=== PATIENT | female | born 1980 | race Caucasian/White ===

== ENCOUNTER 2019-07-22 14:33 | Outpatient (CLI) | payer MEDICAID, SELFPAY ==
--- NOTE | 2019-07-22 14:52 | CT_ITS ---
WS: [id number] CT scan of the neck. Additional two-dimensional coronal and sagittal reconstruction was performed. Clinical Data: ABNORMAL US RESULTS FOR MASS OF STN Comparison: None. DLP: 1446.[address] scans at [facility] use at least one of these dose optimization techniques: automat ed exposure control; mA and/or kV adjustment per patient size (includes targeted exams where dose is matched to clinical indication); or iterative reconstruction. Findings: There is a small lymph node noted on the coronal view, #22 of 90 which measures 0.815 cm. This is on the right side of the posterior neck and may correspond to the palpable abnormality. No lymphadenopathy is noted. The salivary glands are unremarkable. There is no prevertebral soft tiss ue swelling. The larynx is symmetric. The thyroid gland shows normal enhancement. The floor of the mo uth and parapharyngeal spaces are normal. The oral cavity is unremarkable. The carotid arteries bifurcate normally. The cervical spine is unremarkable. The lung apices show no abnormalities. The portions of the intracranial circulation which are seen demonstrate no abnormaliti es. No erosion of the skull or skull base is seen. CT/CT neck w con* [id number] Impression: 1. Probable small lymph node in the posterior lateral aspect of the neck which may correspond to a palpable nodule. 2. Otherwise, negative CT scan of the neck.
[2019-07-22] MEDS: iohexol 300 mg/mL 100 mL Btl IV (15:16)
== END 2019-07-22 14:34 | disposition home or self-care (01) ==
PROVIDERS: Family Provider Family Medicine; PCP Family Medicine; Visit Provider Internal Medicine
DX: R93.0 Abnormal findings on diagnostic imaging of skull and head, not elsewhere classified (principal)
CPT/HCPCS: 70491; Q9967

== ENCOUNTER → 2020-01-13 09:18 | Outpatient (BNVA) | payer OTHER, MEDICAID, SELFPAY | PROVIDERS: Family Provider Family Medicine; PCP Family Medicine; Visit Provider Obstetrics & Gynecology | DX: O23.12 Infections of bladder in pregnancy, second trimester (principal); O09.522 Supervision of elderly multigravida, second trimester; O09.892 Supervision of other high risk pregnancies, second trimester; Z3A.26 26 weeks gestation of pregnancy | CPT/HCPCS: 80053; 81000; 84315; 87077; 87086; 87186 ==

== ENCOUNTER 2020-01-22 07:27 | Outpatient (CLI) | payer OTHER, MEDICAID, SELFPAY ==
[2020-01-22] VITALS (8 sets, daily range): BP systolic 106–118; BP diastolic 63–75; PULSE 91–97; TEMP 36.8; BMI 24.4
== END 2020-01-22 09:15 | disposition home or self-care (01) ==
LOC: OPOB 07:28 → OBGYN 07:29
PROVIDERS: Family Provider Family Medicine; PCP Family Medicine; Visit Provider Obstetrics & Gynecology
DX: O26.899 Other specified pregnancy related conditions, unspecified trimester (principal); Z3A.00 Weeks of gestation of pregnancy not specified; R10.9 Unspecified abdominal pain
CPT/HCPCS: 87077; 87086; 87186; 99211

== ENCOUNTER → 2020-01-27 11:02 | Outpatient (BNVA) | payer OTHER, MEDICAID, SELFPAY | PROVIDERS: Family Provider Family Medicine; PCP Family Medicine; Visit Provider Obstetrics & Gynecology | DX: O09.892 Supervision of other high risk pregnancies, second trimester (principal) | CPT/HCPCS: 82950; 84315; 85027 ==

== ENCOUNTER 2020-02-05 10:12 | Outpatient (CLI) | payer OTHER, MEDICAID, SELFPAY ==
[2020-02-05 10:27] VITALS: BMI 25.2
[2020-02-05 11:17] LABS: Bilirubin Urine Neg (Negative); Blood Urine 2+ (Negative); Glucose Urine UA Norm (Normal); Ketones Urine 1+ (Negative); Nitrate Urine Positive (Negative); Protein Urine 1+ (Negative); Specific Gravity, Urine 1.005 (1.005-1.030); Urine Appearance Cloudy (CLEAR); Urine Color Yellow (Yellow); pH Urine 7 (5-7)
[2020-02-05 11:18] LABS: Bacteria Urine 4+ /hpf; Leukocyte Esterase Urine 2+ (Negative); Squamous Epithelial Cell Urine 0-4 /hpf (0-5); Urobilinogen Urine Norm (Negative); WBC Urine TOO NUMEROUS TO CNT /hpf (0-5)
[2020-02-05 11:19] LABS: Add Urine Culture? Yes
[2020-02-05 11:23] VITALS: BP 137/78; PULSE 88; RESP 108; TEMP 36.2
== END 2020-02-05 10:50 | disposition home or self-care (01) ==
LOC: OPOB 10:19 → OBGYN 02-08 10:35
PROVIDERS: Family Provider Family Medicine; PCP Family Medicine; Visit Provider Obstetrics & Gynecology
DX: O26.899 Other specified pregnancy related conditions, unspecified trimester (principal); Z3A.00 Weeks of gestation of pregnancy not specified
CPT/HCPCS: 81001; 87077; 87086; 87186; 99211

== ENCOUNTER 2020-02-25 14:50 | Outpatient (CLI) | payer OTHER, MEDICAID, SELFPAY ==
[2020-02-25 14:50] VITALS: RESP 18; TEMP 36.6
--- NOTE | 2020-02-25 15:10 | PC.NURSE ---
Marker given to patient and nurse ask patient to push the button every time she feels her baby move.
[2020-02-25 15:13] VITALS: BP 112/73; PULSE 76
[2020-02-25 15:32] VITALS: BP 112/74; PULSE 80
--- NOTE | 2020-02-25 15:36 | PC.NURSE ---
Patient has pushed the button 9 times and verbalizes she is feeling movement.
[2020-02-25 15:43] VITALS: BMI 24.9
[2020-02-25 15:48] VITALS: BP 112/74; PULSE 80; RESP 18
--- NOTE | 2020-02-29 10:53 | PM.ACPR ---
NST (Non-Stress Test) NST : 4 Para: 2,012 Due date: 04/17/20 Gestational age (weeks): 32 Indications: Decreased movement of carranza gestation complicating in third trimester at 32-4/7 weeks gestation. Test: NST Time: 15:12 Length of test in Minutes: 24 Contractions: One Fetus Fetus 1: Baseline FHR BMP:: 135 Variability: Moderate Accelerations: Present Decelerations: None Reacticity: Reactive Interpretation/Plan Interpretation by: Pola Ramos Comments: Reactive NST. Time Out Is a Time Out required?: No
== END 2020-02-25 15:48 | disposition home or self-care (01) ==
LOC: OPOB 15:04 → OBGYN 15:05
PROVIDERS: Family Provider Family Medicine; PCP Family Medicine; Visit Provider Obstetrics & Gynecology
DX: O36.8190 Decreased fetal movements, unspecified trimester, not applicable or unspecified (principal); Z3A.00 Weeks of gestation of pregnancy not specified
CPT/HCPCS: 12345; 59025; 80053; 84315; 99211

== ENCOUNTER → 2020-03-10 11:27 | Outpatient (BNVA) | payer OTHER, MEDICAID, SELFPAY | PROVIDERS: Family Provider Family Medicine; PCP Family Medicine; Visit Provider Nurse Practitioner Women's Health | DX: O09.893 Supervision of other high risk pregnancies, third trimester (principal); R31.9 Hematuria, unspecified; O23.13 Infections of bladder in pregnancy, third trimester; O36.8130 Decreased fetal movements, third trimester, not applicable or unspecified | CPT/HCPCS: 80053; 81000; 87077; 87086; 87184 ==

== ENCOUNTER → 2020-03-24 11:43 | Outpatient (BNVA) | payer OTHER, MEDICAID, SELFPAY | PROVIDERS: Family Provider Family Medicine; PCP Family Medicine; Visit Provider Obstetrics & Gynecology | DX: O09.893 Supervision of other high risk pregnancies, third trimester (principal) | CPT/HCPCS: 81000; 87081 ==

== ENCOUNTER → 2020-03-28 11:01 | Outpatient (BNVA) | payer OTHER, MEDICAID, SELFPAY | PROVIDERS: Family Provider Family Medicine; PCP Family Medicine; Visit Provider Obstetrics & Gynecology | DX: O09.893 Supervision of other high risk pregnancies, third trimester (principal); Z3A.00 Weeks of gestation of pregnancy not specified | CPT/HCPCS: 81000; 87635 ==

== ENCOUNTER → 2020-04-07 15:55 | Outpatient (BNVA) | payer OTHER, MEDICAID, SELFPAY | PROVIDERS: Family Provider Family Medicine; PCP Family Medicine; Visit Provider Obstetrics & Gynecology | DX: Z34.90 Encounter for supervision of normal pregnancy, unspecified, unspecified trimester (principal) | CPT/HCPCS: 81000 ==

== ENCOUNTER 2020-04-11 02:48 | Inpatient (IN) | payer OTHER, MEDICAID, SELFPAY ==
[2020-04-11] VITALS (35 sets, daily range): BP systolic 0–153; BP diastolic 0–95; PULSE 81–105; RESP 16–18; TEMP 36.4–36.9; O2SAT 96; BMI 26.3
[2020-04-11] MEDS: dextrose 5%-lactated ringers 1,000 ML 125 ML IV (02:45)
[2020-04-11 03:02] LABS: Basophils % 0.3 %; Eosinophils # 0.1 10^3/uL (0.0-0.8); Eosinophils % 1.1 %; Hematocrit 39.5 % (37.0-47.0); Hemoglobin 12.7 g/dL (11.5-15.3); Lymphocytes # 3.2 10^3/uL (0.8-4.8); Lymphocytes % 30.6 %; Mean Corpuscular HGB Conc 32.2 g/dL (30.0-36.0); Mean Corpuscular Hemoglobin 29.7 pg (28.0-34.0); Mean Corpuscular Volume 92.3 fL (81-99); Mean Platelet Volume 11.5 fL (7.4-10.4); Monocytes # 0.9 10^3/uL (0.2-0.9); Monocytes % 8.5 %; Neutrophils # 6.07 10^3/uL (1.8-7.7); Nucleated Red Blood Cells % 0 %; Platelet Count 198 10^3/cmm (130-400); Red Blood Count 4.28 10^6/uL (4.1-5.3); Red Cell Distribution Width 13.5 % (12.1-15.1); White Blood Count 10.3 10^3/uL (4.0-10.0)
[2020-04-11] MEDS: oxytocin 30 UNIT/500 ML BAG 999 UNIT IV (04:05)
--- NOTE | 2020-04-11 04:12 | P.PCNOB_ITS ---
Delivery Note: Date of delivery: April 11, 2020 Pre-delivery diagnoses: term Post-delivery diagnoses: term delivered Procedure: spontaneous vaginal delivery Op report anesthesia: None Delivering Physician: Ike Ferrera M.D. Estimated blood loss (mL): 500 Findings: Term female infant, Apgars 8/9, weight 3350 g. Pre-Delivery Course: 40 year old, 4, Para 2-0-1-2 with an LMP of 09/13/2019 with an BRYANT of 04/17/2020 based on 9 week ultrasound, which places her at 38 4/7 weeks gestation. Transfer of care from Dr. Tang at 26 weeks. Has been receiving care from [facility]. She has been experiencing painful uterine contractions for the past 4 hours. The contractions are occurring at 4 minute intervals with approximately 30 second duration. She continues to feel movement between the contractions. She denies vaginal bleeding or rupture of membranes. upon arrival to labor and delivery cervical exam with 6-7 dilation, 90% effaced, 0 station. CC: Onset of labor at term. HPI: Received appropriate care. Daily vitamins since start care. labs have all been normal, including negative for HIV. She was found to negative for Group B Strep from screening at 36 weeks. She has gained approximately 38 lbs throughout the . She denies a history of HTN during . Glucose tolerance screening for gestational diabetes was negative. Delivery: The patient was noted to be complete and pushing, so was placed in the dorsal lithotomy position, prepped and draped in the usual sterile fashion for a vaginal delivery. Pt. Noted to have no anesthesia. At 0400 the patient delivered a viable term female infant weighing 3350 g with scores of 8 and 9 at one and five minutes, respectively. The vertex was delivered spontaneously over intact perineum. The patient was asked to push and the head delivered spontaneously in the FLOR position, over an intact perineum. A nuchal cord was checked and none noted. The anterior shoulder delivered easily and the posterior shoulder followed. The remainder of the was easily delivered and the oropharynx and nasopharynx was bulb suctioned. The was noted to have spontaneous cry and spontaneous movement of all four extremities. The cord was clamped x 2 and cut and noted to have 2 arteries and one vein. The infant was passed to the mother's abdomen where nursing personnel were in attendance. Cord blood was then obtained. A double lobe placenta delivered intact spontaneously and the uterus was explored. 20 units of Pitocin was placed in the IV bag to firm the uterus. Examination of the cervix and vaginal vault did not reveal any lacerations. A vaginal pack was then placed. Examination of the perineum showed no lacerations. The vaginal pack was then removed. The patient tolerated this procedure well, and recovered in L&D with her the OB osorio. All sponge and needle counts were correct. Post-Delivery Status: good and hemodynamically Stable A&P Assessment and plan (1) Term delivered: Status: Acute Coding Level of Care Code Acute Part Time Receptionist for Chg Fwd Diagnoses Term delivered O80
[2020-04-11] MEDS: miSOPROStol 200 mcg Tablet 800 MCG PR (05:25)
[2020-04-11] MEDS: oxytocin 30 UNIT/500 ML BAG 125 UNIT IV (06:00)
[2020-04-11] MEDS: ibuprofen 800 mg tablet PO ×3 (08:55→21:09)
[2020-04-11] MEDS: docusate sodium 100 mg Capsule PO ×2 (08:55→17:53)
[2020-04-11] MEDS: prenatal vitamin Capsule 1 CAP PO (08:55)
--- NOTE | 2020-04-11 14:03 | PC.NURSE ---
Nurse at patient bedside to take vital signs and perform fundal massage. Patient requested nurse not perform these actions at this time as nurse is at patient bedside assisting her with . This specification writer requested patient to hit her call light when ready for nurse to return to room and take her vital signs and perform fundal massage. Patient acknowledged understanding.
[2020-04-11 16:37] LABS: Hematocrit 32.4 % (37.0-47.0); Hemoglobin 10.7 g/dL (11.5-15.3); Mean Corpuscular Hemoglobin 30.6 pg (28.0-34.0); Mean Corpuscular Volume 92.6 fL (81-99); Mean Platelet Volume 11.4 fL (7.4-10.4); Platelet Count 177 10^3/cmm (130-400); Red Cell Distribution Width 13.5 % (12.1-15.1); White Blood Count 14.4 10^3/uL (4.0-10.0)
--- NOTE | 2020-04-11 20:24 | PC.NURSE ---
Spoke with pt. about the sitz bath and ice pack to help with discomfort in her perineum and rectum. Pt. declined any additional measures at this time.
--- NOTE | 2020-04-12 02:16 | PC.NURSE ---
Blankets provided per pt. request
[2020-04-12 06:00] VITALS: BP 107/69; PULSE 84; RESP 16; TEMP 36.5; O2SAT 96
--- NOTE | 2020-04-12 06:35 | PM.OBGYDC ---
Discharge Providers STAGE RIGGER Date of Admission: 04/11/20 02:48 Date of Discharge: 04/12/20 Attending Provider at Admission: Ike Ferrera MD Attending Provider at Discharge: Ike Ferrera MD Primary Care Provider: Obduloi Kitchen MD Diagnoses at Discharge Discharge Diagnosis (1) Term delivered: Status: Acute Reason for Visit Reason for Visit: CONTRACTIONS Hospital Course Hospital Course 40 year old, 4, Para 2-0-1-2 with an LMP of 09/13/2019 with an BRYANT of 04/17/2020 based on 9 week ultrasound, which places her at 39 weeks gestation. Transfer of care from Dr. Tang at 26 weeks. Has been receiving care from [facility]. She came to labor and delivery referring she has been experiencing painful uterine contractions for the past 4 hours. The contractions are occurring at 4 minute intervals with approximately 30 second duration. She continues to feel movement between the contractions. She denies vaginal bleeding or rupture of membranes. upon arrival to labor and delivery cervical exam with 6-7 dilation, 90% effaced, 0 station. Received appropriate care. Daily vitamins since start care. labs have all been normal, including negative for HIV. She was found to negative for Group B Strep from screening at 36 weeks. She has gained approximately 38 lbs throughout the . She denies a history of HTN during . Glucose tolerance screening for gestational diabetes was negative. She will have a rapid progression of labor. She delivered a viable term female weighing 3350 g with scores of 8 and 9 at one and five minutes. observation uneventful. She is afebrile hemodynamically stable. Tolerating diet well. Ambulating without difficulty. Information Peripartum Data: Delivery Method: Vaginal Physical Exam Narrative: EXAM NARRATIVE: GA; alert and oriented x 3 HEENT: normal Breasts: engorged Nipples - skin intact Lungs; clear to auscultation Heart: regular rhythm, no murmurs. Abd: Appropriately tender. BS+. Uterine fundus below umbilicus. No Fundal Tenderness. Perineum: normal lochia. Extremities: no edema, no cyanosis, no tenderness. Discharge Data Data Completed and Pending: Pending at discharge Category Date Time Status Pathology: Surgic al [PTH] Stat Pth 04/11/20 04:47 Received Labs from last 24 hours 04/11/20 16:16 WBC 14.4 H RBC 3.50 L Hgb 10.7 L Hct 32.4 L MCV 92.6 MCH 30.6 MCHC 33.0 RDW 13.5 Plt Count 177 MPV 11.4 H Vitals: Last Vital Signs Temp 97.7 F 04/12/20 06:00 Pulse 84 04/12/20 06:00 Resp 16 04/12/20 06:00 BP 107/69 04/12/20 06:00 Pulse Ox 96 04/12/20 06:00 Discharge Plan Discharge Patient Disposition: Home Condition: Stable Prescriptions: New ibuprofen 800 mg tablet 800 mg PO TID PRN (Reason: pain) Qty: 60 RF: 0 acetaminophen 325 mg capsule 325 mg PO Q4H PRN (Reason: fever or pain) Qty: 60 RF: 0 ferrous sulfate [Iron (ferrous sulfate)] 325 mg (65 mg iron) tablet 325 mg PO BID Qty: 60 RF: 0 Continued prenat.vits,johnny,[id number] Tablet 1 tab PO DAILY RF: 0 Discharge Orders: Discharge Order (Routine); Ordered 04/12/20 Ordered By: Ike Ferrera Discharge Diet: Regular Discharge Activity: Increase activity as tolerated Patient Instructions: Bleeding (DC), OB Discharge Report, OB Food/Drug Interaction Guide, OB Home Care, OB Proud Parent Packet, OB Vaginal Deliveries - [facility] Activity Restrictions/Additional Instructions: 1. Please call [facility] on next working day to make your post- appointment in 6 weeks. 2. Please stay home until you come back to the clinic on first post-operative check up. 3. Please follow instructions on your medications CAREFULLY. 4. If you have abdominal incision, do not cover it unless dressing is necessary because of drainage. OK to shower, but avoid bath. Leave steri-strips until they fall off. If they are still on one week after surgery, you may remove them. 5. If you had vaginal surgery or laceration repair, your doctor may instruct you to take SITZ bath. 6. Yellow, blood tinged odorous vaginal discharge is usually normal after hysterectomy or vaginal surgeries. 7. No sexual intercourse, tampons, or douches until you are completely released at 6 weeks. 8. Avoid constipation by eating right and maybe using some Metamucil or Milk of Magnesia. 9. All prescription refills are given during the working hours. Please do no wait till it runs out. Call the clinic at [phone] before your medication runs out. The clinic will get in touch with your doctor to prescribe medications if necessary. 10. Please remain within 40 mile radius from our hospital because emergencies do happen now and then during the post-operative period. 11. If you have stairs at home, take one step at a time slowly and minimize the number of trips. It helps to stay in one floor for the next few days. No lifting except what you can lift by one hand until you are released from the post-operative care. 12. Driving is discouraged until you are well healed. It may be 3-4 weeks before you feel strong enough to drive. You should be able to turn and look through the rear window without pain and you should be able to push the brake pedal very hard without pain before you drive. No fast rules, but SAFETY should be your primary concern. DO NOT drive if you are on sedating medications such as narcotics. 13. Call the clinic (during working hours) to make urgent appointment or go to the Emergency room, if any of the following occurs: i. Vaginal bleeding becomes heavy, more than a period. ii. Incision becomes red and sore, or drains pus. iii. Your temperature is over 100.4 or you have chill. iv. IV site becomes red and swollen (a little ``knot?? is usually OK) v. Persistent nausea and vomiting vi. Persistent constipation or diarrhea vii. Rash or allergic reaction to medications. Discharge Attestations STAGE RIGGER Time Spent in Discharge Care*: greater than 30 min Coding Level of Care Code Acute Rib Chopper for Chg Fwd Diagnoses Term delivered O80
[2020-04-12 08:38] VITALS: BP 132/75; PULSE 111; RESP 16; TEMP 36.4; O2SAT 97
== END 2020-04-12 09:06 | disposition home or self-care (01) | DRG 807 ==
LOC: OPOB 02:48 → OBGYN 02:48
PROVIDERS: Admitting Provider Obstetrics & Gynecology; Family Provider Family Medicine; PCP Family Medicine; Visit Provider Obstetrics & Gynecology
DX: O62.3 Precipitate labor (principal); Z37.0 Single live birth; Z3A.39 39 weeks gestation of pregnancy
CPT/HCPCS: 12345; 36415; 59025; 59409; 83986; 85025; 85027; 88307; 98960; 99211

== ENCOUNTER → 2020-10-31 11:29 | Outpatient (BNVA) | payer OTHER, MEDICAID, SELFPAY | PROVIDERS: Family Provider Family Medicine; PCP Family Medicine; Visit Provider Nurse Practitioner Women's Health | DX: N92.6 Irregular menstruation, unspecified (principal) | CPT/HCPCS: 81025 ==

== ENCOUNTER → 2020-11-14 12:49 | Outpatient (BNVA) | payer OTHER, MEDICAID, SELFPAY | PROVIDERS: Family Provider Family Medicine; PCP Family Medicine; Visit Provider Obstetrics & Gynecology | DX: O09.899 Supervision of other high risk pregnancies, unspecified trimester (principal); O09.522 Supervision of elderly multigravida, second trimester | CPT/HCPCS: 80307; 84315; 85027; 86592; 86762; 86803; 86850; 86900; 87086; 87340; 87491; 87591; 87806 ==

== ENCOUNTER → 2020-12-29 09:51 | Outpatient (BNVA) | payer OTHER, MEDICAID, SELFPAY | PROVIDERS: Family Provider Family Medicine; PCP Family Medicine; Visit Provider Nurse Practitioner Women's Health | DX: Z34.80 Encounter for supervision of other normal pregnancy, unspecified trimester (principal) | CPT/HCPCS: 76805 ==

== ENCOUNTER → 2021-02-02 15:51 | Outpatient (BNVA) | payer OTHER, MEDICAID, SELFPAY | PROVIDERS: Family Provider Family Medicine; PCP Family Medicine; Visit Provider Nurse Practitioner Women's Health | DX: O09.899 Supervision of other high risk pregnancies, unspecified trimester (principal); Z34.90 Encounter for supervision of normal pregnancy, unspecified, unspecified trimester | CPT/HCPCS: 81000; 82950 ==

== ENCOUNTER → 2021-02-16 11:19 | Outpatient (BNVA) | payer OTHER, MEDICAID, SELFPAY | PROVIDERS: Family Provider Family Medicine; PCP Family Medicine; Visit Provider Obstetrics & Gynecology | DX: O09.899 Supervision of other high risk pregnancies, unspecified trimester (principal) | CPT/HCPCS: 84315; 87086 ==

== ENCOUNTER → 2021-03-02 10:56 | Outpatient (BNVA) | payer OTHER, MEDICAID, SELFPAY | PROVIDERS: Family Provider Family Medicine; PCP Family Medicine; Visit Provider Obstetrics & Gynecology | DX: O09.899 Supervision of other high risk pregnancies, unspecified trimester (principal); Z3A.00 Weeks of gestation of pregnancy not specified | CPT/HCPCS: 84315; 85027 ==

== ENCOUNTER 2021-03-09 10:53 | Outpatient (CLI) | payer OTHER, MEDICAID, SELFPAY ==
[2021-03-09] VITALS (7 sets, daily range): BP systolic 105–119; BP diastolic 57–74; PULSE 95–105; RESP 18; BMI 25.7
--- NOTE | 2021-03-09 11:54 | US_ITS ---
WS: [id number] Limited obstetrical ultrasound. HISTORY: Evaluate cervical length. COMPARISON: 12/29/2020. Single intrauterine gestation is present in breech position. Transvaginal imaging is performed. The c ervix is closed measuring 4.7 cm in length. No funneling or insufficiency. heart rate 167 bpm. US/US OB transvaginal [id number] IMPRESSION: Normal cervical length. No cervical insufficiency.
[2021-03-09 12:44] LABS: Urine Color Yellow (Yellow)
[2021-03-09 12:45] LABS: Add Urine Microscopic? YES; Bilirubin Urine Neg (Negative); Blood Urine Neg (Negative); Glucose Urine UA Trace (Normal); Ketones Urine Negative (Negative); Leukocyte Esterase Urine Negative (Negative); Nitrate Urine Negative (Negative); Protein Urine Neg (Negative); Specific Gravity, Urine 1.015 (1.005-1.030); Urine Appearance Cloudy (CLEAR); Urobilinogen Urine Norm (Negative); pH Urine 7 (5-7)
[2021-03-09 12:46] LABS: Add Urine Culture? No; Amorphous Sediment Urine 3+ /hpf; Bacteria Urine 1+ /hpf; Mucus Urine TRACE /hpf; Squamous Epithelial Cell Urine 0-4 /hpf (0-5)
== END 2021-03-09 13:15 | disposition home or self-care (01) ==
LOC: OPOB 11:03 → OBGYN 11:04
PROVIDERS: Family Provider Family Medicine; PCP Family Medicine; Visit Provider Obstetrics & Gynecology
DX: O26.859 Spotting complicating pregnancy, unspecified trimester (principal)
CPT/HCPCS: 59025; 76817; 81001; 87086; 99211

== ENCOUNTER 2021-03-30 16:45 | Outpatient (CLI) | payer OTHER, MEDICAID, SELFPAY ==
--- NOTE | 2021-03-30 17:00 | P.PCN_ITS ---
Procedure/Consent Procedure Narrative: NONSTRESS TEST: Place of test: [facility] [place] Indication: 41-year-old 5 para 3-0-1-3 at 33 weeks and 5 days gestation, decreased movement and abdominal pain Date and time of test: 4:30 PM, 03/30/2021 Baseline: 135 Variability: Moderate variability Accelerations: Accelerations present Decelerations: No decelerations Tocometry: No contractions INTERPRETATION: NST reactive-reassuring status, continue kick counts
[2021-03-30 17:05] VITALS: BP 122/74; PULSE 101; RESP 16
[2021-03-30 17:29] LABS: Urine Color Dark Yellow (Yellow)
[2021-03-30 17:30] LABS: Blood Urine Neg (Negative); Glucose Urine UA Norm (Normal); Ketones Urine 1+ (Negative); Nitrate Urine Negative (Negative); Protein Urine Neg (Negative); Specific Gravity, Urine 1.015 (1.005-1.030); Urine Appearance Clear (CLEAR); pH Urine 6 (5-7)
[2021-03-30 17:31] LABS: Add Urine Culture? No; Bacteria Urine 1+ /hpf; Bilirubin Urine 1+ (Negative); Leukocyte Esterase Urine Negative (Negative); RBC Urine 0-4 /hpf (0-2); Squamous Epithelial Cell Urine 0-4 /hpf (0-5); Urobilinogen Urine 1 mg/dL (Negative)
[2021-03-30 17:53] VITALS: BP 112/67; PULSE 99
== END 2021-03-30 18:00 | disposition home or self-care (01) ==
LOC: OPOB 16:45 → OBGYN 16:47
PROVIDERS: Family Provider Family Medicine; PCP Family Medicine; Visit Provider Obstetrics & Gynecology
DX: O36.8130 Decreased fetal movements, third trimester, not applicable or unspecified (principal); Z3A.33 33 weeks gestation of pregnancy
CPT/HCPCS: 59025; 81001; 87086; 99211

== ENCOUNTER 2021-04-02 20:54 | Outpatient (CLI) | payer OTHER, MEDICAID, SELFPAY ==
[2021-04-02 21:08] VITALS: BMI 26.4
[2021-04-02 21:09] VITALS: RESP 16
[2021-04-02 21:14] VITALS: RESP 16
[2021-04-02 21:19] VITALS: BP 126/74; PULSE 114; TEMP 36.8
--- NOTE | 2021-04-02 21:33 | USR_ITS ---
PROCEDURE INFORMATION: Exam: US Biophysical Profile Without Non-Stress Test Exam date and time: 04/02/2021 9:33 PM Age: 41 years old Clinical indication: Other: PT states she has had multiple contractions; ; Additional info: Placenta TECHNIQUE: Imaging protocol: US biophysical profile without non-stress testing. COMPARISON: US OB >= 14 weeks fetus [id number] 12/29/2020 9:52 AM FINDINGS: BIOPHYSICAL PROFILE: Breathin/2 Gross body movements: 2/2 tone: 2/2 Qualitative amniotic fluid: 2/2 Biophysical Profile Score: 8/8 US/US OB BPP wo NST [id number] IMPRESSION: Biophysical profile score is 8 out of 8. Radiation Dose CTDIVOL = (mGy): DLP = (mGy-cm)
[2021-04-02 22:09] LABS: Add Urine Microscopic? YES; Bilirubin Urine 2+ (Negative); Blood Urine Neg (Negative); Glucose Urine UA Norm (Normal); Ketones Urine 1+ (Negative); Leukocyte Esterase Urine Trace (Negative); Nitrate Urine Negative (Negative); Protein Urine 1+ (Negative); Specific Gravity, Urine 1.015 (1.005-1.030); Urine Appearance Clear (CLEAR); Urine Color Dark Yellow (Yellow); Urobilinogen Urine 4 mg/dL (Negative); pH Urine 5 (5-7)
[2021-04-02 22:10] LABS: Add Urine Culture? Yes; Bacteria Urine 1+ /hpf; Mucus Urine 3+ /hpf; Squamous Epithelial Cell Urine 0-4 /hpf (0-5); WBC Urine 0-4 /hpf (0-5)
[2021-04-02 23:25] VITALS: BP 121/76; PULSE 94; TEMP 36.4
[2021-04-03] MEDS: NIFEdipine 10 mg Capsule 30 MG PO (00:01)
[2021-04-03 00:03] VITALS: RESP 16; TEMP 36.6
[2021-04-03 00:04] VITALS: BP 124/80; PULSE 101
== END 2021-04-03 01:11 | disposition home or self-care (01) ==
LOC: OPOB 21:03 → OBGYN 21:04
PROVIDERS: Family Provider Family Medicine; PCP Family Medicine; Visit Provider Obstetrics & Gynecology
DX: O47.9 False labor, unspecified (principal)
CPT/HCPCS: 59025; 76819; 81001; 87086; 99211

== ENCOUNTER → 2021-04-03 13:41 | Outpatient (BNVA) | payer OTHER, MEDICAID, SELFPAY | PROVIDERS: Family Provider Family Medicine; PCP Family Medicine; Visit Provider Obstetrics & Gynecology | DX: O09.893 Supervision of other high risk pregnancies, third trimester (principal); O99.713 Diseases of the skin and subcutaneous tissue complicating pregnancy, third trimester; L29.9 Pruritus, unspecified; O26.613 Liver and biliary tract disorders in pregnancy, third trimester; K83.1 Obstruction of bile duct; O09.523 Supervision of elderly multigravida, third trimester; O35.0XX0 Maternal care for (suspected) central nervous system malformation in fetus, not applicable or unspecified; Z3A.34 34 weeks gestation of pregnancy | CPT/HCPCS: 82010; 82977; 83615; 84315; 84450; 84460 ==

== ENCOUNTER 2021-04-06 | Inpatient (IN) | payer OTHER, MEDICAID, SELFPAY ==
[2021-04-05 23:34] VITALS: PULSE 115; O2SAT 97
[2021-04-05 23:36] VITALS: BP 124/76; PULSE 109
[2021-04-05 23:52] VITALS: BP 137/84; PULSE 108; RESP 18
[2021-04-06] VITALS (99 sets, daily range): BP systolic 92–141; BP diastolic 50–96; PULSE 77–126; RESP 16–19; TEMP 36.7–37; O2SAT 92–100; BMI 26.7
[2021-04-06] MEDS: ampicillin 2,000 MG in sodium chloride 0.9% (plus) 50 ML 100 MG IV (00:01)
[2021-04-06] MEDS: lactated ringers 1,000 ML 999 ML IV ×2 (00:03→01:04)
[2021-04-06] MEDS: betamethasone susp 6 mg/mL 5 mL 12 MG IM (00:03)
--- NOTE | 2021-04-06 00:25 | PM.OPHPUD ---
Labor & Delivery H&P Update Date of Procedure: April 06, 2021 Date H&P Performed: 04/03/21 H&P update information: I have reviewed H&P completed within last 30 days, I have examined patient prior to procedure and Changes to prior documentation as noted here Changes to previous documentation: The patient presents in active labor. Cervix is 5-6/50/-4 Admission Diagnosis: iup @ 34 5/7, labor Related Problem List Diagnoses (1) Intrahepatic cholestasis of in third trimester: (2) Ventriculomegaly of brain on ultrasound: (3) Supervision of elderly multigravida: (4) Short interval between pregnancies affecting , antepartum: (5) labor in third trimester:
[2021-04-06 00:37] LABS: Basophils % 0.2 %; Eosinophils # 0.1 10^3/uL (0.0-0.8); Eosinophils % 1.3 %; Hematocrit 37.7 % (37.0-47.0); Hemoglobin 12.6 g/dL (11.5-15.3); Lymphocytes # 1.6 10^3/uL (0.8-4.8); Mean Corpuscular HGB Conc 33.4 g/dL (30.0-36.0); Mean Corpuscular Hemoglobin 30.1 pg (28.0-34.0); Mean Platelet Volume 11.8 fL (7.4-10.4); Monocytes # 0.7 10^3/uL (0.2-0.9); Monocytes % 8.4 %; Neutrophils # 5.83 10^3/uL (1.8-7.7); Neutrophils % 70.7 %; Nucleated Red Blood Cells % 0 %; Platelet Count 194 10^3/cmm (130-400); Red Blood Count 4.19 10^6/uL (4.1-5.3); Red Cell Distribution Width 12.9 % (12.1-15.1); White Blood Count 8.3 10^3/uL (4.0-10.0)
--- NOTE | 2021-04-06 01:35 | P.ANESASSM_ITS ---
Pre-Anesthetic Assessment Pre-Anesthetic Assessment: Height/Weight: Height 1.7 m Weight 77.564 kg Temp Pulse Resp BP Pulse Ox 98.1 F 105 H 18 139/81 97 04/06/21 00:41 04/06/21 01:29 04/05/21 23:52 04/06/21 01:29 04/06/21 01:28 Preop Diagnosis: labor pain Proposed Procedure: YULIA Was Beta Delvis taken within 24 hours: N/A Was Clonidine taken within 24 hours: N/A Last intake: 1800 Social: Social History: No alcohol and No tobacco Exam: Pre-Anes Outpt Exam: alert, oriented x 3, clear to auscultation bilaterally and regular rate & rhythm Airway: Submandibular: WNL Cervical ROM: WNL MP: 2 Dentition: Full History/ROS: No significant history except as noted and No significant co mplaints CV/HEM: CV/HEM: None reported : : None reported Hepatic: Comments: Hepatic issue during GI: GI: None reported Metabolic: Metabolic: None reported Musc/skel: Musc/skel: None reported Neuropsych: Neuropsych: None reported Anesthetic Plan: ASA status: 2 Anesthesia: Anesthesia Evaluation and Regional (specify below) Other: YULIA Risk of > 500 ml blood loss (7ml/kg in children): No Meds/Allergies Current Medications: Current Medications Generic Name Dose Route Start Last Admin Trade Name Freq PRN Reason Stop Dose Admin Betamethasone Acet /Betameth SodPhos 12 mg 04/05/21 23:45 04/06/21 00:03 Betamethasone Page sp 6 Mg/Ml 5 Ml IM 04/06/21 23:46 12 mg Q24H KIARA Administration Lactated Ringer's 1,000 mls @ 999 m ls/hr 04/05/21 23:55 04/06/21 00:03 Lactated Ringers IV 999 mls/hr .Q1H1M PRN Administration See label comment s PFSH Anesthesia PFSH: Medical History No pertinent past medical history neghx: htn,dm,thyroid,dvt/pe PCP: Cedric Copeland Surgical History H/O laparoscopy (09/30/18) Left ovarian cystectomy. Performed by Dr. Ferrera at [facility] in [place], [place] Hx of oral surgery (~2014) Family History Grandmother Diabetes Maternal Hyperlipidemia Maternal Breast cancer Maternal--dx age 50's Father Hypertension Grandfather Hypertension Paternal Denies family history of Colon cancer Ovarian cancer Heart disease Uterine cancer Thyroid disease Stroke Female Reproductive History: : 5 Data Anesthesia CBC & Chem 7: 04/05/21 23:50 Other Labs: Laboratory Results - last 48 hr 04/05/21 23:50 WBC 8.3 RBC 4.19 Hgb 12.6 Hct 37.7 MCV 90.0 MCH 30.1 MCHC 33.4 RDW 12.9 Plt Count 194 MPV 11.8 H Neut % (Auto) 70.7 Lymph % (Auto) 19.0 [place] % (Auto) 8.4 Eos % (Auto) 1.3 Baso % (Auto) 0.2 Neut # (Auto) 5.83 Lymph # (Auto) 1.6 [place] # (Auto) 0.7 Eos # (Auto) 0.1 Baso # (Auto) 0.0 Nucleated RBC % (auto) 0 Nucleated RBCs # 0.0 Cardiac Studies: No Data to Display
--- NOTE | 2021-04-06 01:39 | ANES.PROC ---
Anesthesia Procedures Procedure/Date: 04/06/21 Epidural: Time Out Performed: Yes Consents Signed: Procedure Consent Consent: requested by attending/covering physician, from patient, risks and benefits reviewed and patient agrees to proceed Lumbar Level: L3-L4 Epidural position: sitting Epidural procedure: sterile prep of area, 1% lidocaine to numb the area, 18 g needle, neg for paresthesia, test dose given, 1.5% xylocaine 1:200k epi (5cc), 0.2% Ropivacaine bolus ml (4cc with Fentanyl 100mcg), placed PCEA, no systemic response, sterile dressing applied, L.U.D. no apparent complications and 0.2% Ropiavacaine @ mls/hr (13cc/hour. Tolerated procedure well)
[2021-04-06] MEDS: dextrose 5%-lactated ringers 1,000 ML 125 ML IV ×2 (02:22→11:52)
[2021-04-06] MEDS: ampicillin 1,000 MG in sodium chloride 0.9% (plus) 50 ML 100 MG IV ×3 (04:21→11:51)
[2021-04-06] MEDS: oxytocin 30 UNIT/500 ML BAG IV (11:20)
--- NOTE | 2021-04-06 12:57 | PM.DELIVERY ---
Delivery Note: Date of delivery: April 06, 2021 Pre-delivery diagnoses: iup @ 34w5d Post-delivery diagnoses: same Procedure: Op report anesthesia: Epidural Delivering Physician: anju Estimated blood loss (mL): 150 Findings: male . placenta removed manually in pieces Pre-Delivery Course: The patient was admitted for active labor at 34 weeks. She was expectantly managed. She received a dose of betamethsaone and 3 doses of ampicillin. She remained at 9 cm for several hours. She had AROM with thick meconium. low dose pitocin was started. She had complete cervical dilation and begain pushing. Delivery: The patient had complete cervical dilation and began to push. The head delivered in the FLOR position over an intact perineum under epidural anesthesia. The nose and mouth were bulb suctioned. The shoulders and body delivered atraumatically. The baby was placed onto the mother's abdomen. The cord was clamped and cut. Cord blood was obtained. The placenta was delivered manually. It was inspected and found to be in many pieces. It was sent to pathology. Inspection of the perineum revealed no repair was required. Estimated blood loss 150 mL. Apgars on baby were 8 at 1 minute and 9 at 5 minutes. Weight of baby is 6 pounds 12 ounces. Mother and baby were stable post delivery. History History History 5 Term 3 Miscarriages/Ectopic 1 0 Living Children 3 A&P Assessment and plan (1) Intrahepatic cholestasis of in third trimester: Status: Acute (2) Supervision of elderly multigravida: Status: Acute Qualifiers: Trimester: second trimester Qualified Code(s): O09.522 - Supervision of elderly multigravida, second trimester (3) Short interval between pregnancies affecting , antepartum: Status: Acute (4) labor in third trimester: Status: Acute Coding Level of Care Code Acute Design Maintenance Engineer for [facility] Fwd Diagnoses Intrahepatic cholestasis of in third trimester O26.613; K83.1 Supervision of elderly multigravida O09.522 Trimester: second trimester Short interval between pregnancies affecting , antepartum O09.899 labor in third trimester O60.03
[2021-04-06] MEDS: benzocaine-menthol 78 gm Canister 1 SPRAY TOPICAL (15:43)
[2021-04-06] MEDS: ibuprofen 800 mg tablet PO ×2 (15:44→21:39)
[2021-04-06] MEDS: lanolin oint 7 gm 1 APPLIC TOPICAL (15:44)
--- NOTE | 2021-04-06 16:10 | ANE.PACU2 ---
Inpatient post-anesthesia follow up: Airway intact: Yes Vital signs: Temperature 98.6 F Pulse Rate 106 Respiratory Rate 16 Blood Pressure 116/67 Pulse Oximetry 92 Oxygen Delivery Me thod Room Air Oxygen Flow Rate Fraction of Inspir ed Oxygen Hydration adequate: Yes Nausea and vomiting: No Pain level: 2 Mental status: Baseline
--- NOTE | 2021-04-06 16:25 | PC.NURSE ---
Patient ambulated to room 10 without difficulty. Patient oriented to new room and call light provided.
[2021-04-06] MEDS: docusate sodium 100 mg Capsule PO (18:25)
[2021-04-07 03:05] VITALS: BP 117/72; PULSE 81; TEMP 36.5
[2021-04-07 03:29] LABS: Hematocrit 35.9 % (37.0-47.0); Hemoglobin 11.8 g/dL (11.5-15.3); Mean Corpuscular HGB Conc 32.9 g/dL (30.0-36.0); Mean Corpuscular Hemoglobin 29.8 pg (28.0-34.0); Mean Corpuscular Volume 90.7 fl (81-99); Mean Platelet Volume 11.9 fL (7.4-10.4); Platelet Count 184 10^3/cmm (130-400); Red Blood Count 3.96 10^6/uL (4.1-5.3); Red Cell Distribution Width 12.6 % (12.1-15.1)
[2021-04-07] MEDS: docusate sodium 100 mg Capsule PO (08:21)
[2021-04-07] MEDS: prenatal vitamin Capsule 1 CAP PO (08:21)
[2021-04-07] MEDS: ibuprofen 800 mg tablet PO ×2 (08:21→15:28)
[2021-04-07 08:23] VITALS: BP 114/74; PULSE 81; RESP 16; O2SAT 98
--- NOTE | 2021-04-07 12:10 | P.DS_ITS ---
Discharge Providers Date of Admission: 04/06/21 00:00 Date of Discharge: April 07, 2021 Attending Provider at Admission: Lorenza Tavares MD Attending Provider at Discharge: Lorenza Tavares MD Primary Care Provider: Obdulio Kitchen MD Diagnoses at Discharge Discharge Diagnosis (1) Intrahepatic cholestasis of in third trimester: Status: Acute (2) Supervision of elderly multigravida: Status: Acute Qualifiers: Trimester: second trimester Qualified Code(s): O09.522 - Supervision of elderly multigravida, second trimester (3) Short interval between pregnancies affecting , antepartum: Status: Acute (4) labor in third trimester: Status: Acute Reason for Visit Reason for Visit: Contractions, lost mucous plug Hospital Course Hospital Course The patient was admitted for labor and 34 weeks 5 days. She had spontaneous delivery of a good sized male . (6#12oz) She did well and was ready for discharge on day #1. Physical Exam Narrative: EXAM NARRATIVE: The patient is doing well this morning. Const: COMMON NORMALS: no acute distress, average body habitus, patient oriented x3, no limitations, healthy appearing and alert GENERAL APPEARANCE: cooperative, comfortable, well kempt and well developed ORIENTATION/CONSCIOUSNESS: Yes awake, Yes oriented to person, Yes oriented to place and Yes oriented to time Resp: COMMON NORMALS: normal respiratory effort EFFORT & INSPECTION: Yes able to speak in complete sentences GI: COMMON NORMALS: Soft to palpation and non-tender PALPATION: Yes Soft to palpation Extremity: COMMON NORMALS: no calf tenderness Neuro: COMMON NORMALS: patient oriented x3 SENSORIUM/ORIENTATION: Yes alert, Yes oriented to person, Yes oriented to place and Yes oriented to time Psych: APPEARANCE: Yes well kempt Urinary Catheter Management^: Moreno: Cath Placed During This Visit: yes, but has since been removed by the nurse Reason for Continuing Indwelling Catheter: Decision to DC Catheter Urinary Catheter Date of Insertion: 04/06/21 Urinary Catheter Time of Insertion: 06:22 Date Urinary Catheter Removed: 04/06/21 Time Urinary Catheter Discontinued: 12:33 Discharge Data Data Completed and Pending: Pending at discharge Category Date Time Status [facility] SARS-CoV-2 RNA Routine Lab 04/06/21 07:54 Received Pathology: Surgic al [PTH] Routine Pth 04/06/21 22:18 Ordered Labs from last 24 hours 04/07/21 01:52 WBC 19.0 H RBC 3.96 L Hgb 11.8 Hct 35.9 L MCV 90.7 MCH 29.8 MCHC 32.9 RDW 12.6 Plt Count 184 MPV 11.9 H Vitals: Last Vital Signs Temp 97.7 F 04/07/21 03:05 Pulse 81 04/07/21 08:23 Resp 16 04/07/21 08:23 BP 114/74 04/07/21 08:23 Pulse Ox 98 04/07/21 08:23 Discharge Plan Discharge Patient Disposition: Home Condition: Stable Prescriptions: Continued prenat.vits,johnny,[id number] Tablet 1 tab PO DAILY RF: 0 ursodiol [JELANI Forte] 500 mg tablet 500 mg PO BID Qty: 60 RF: 3 Discharge Orders: Discharge Order (Routine); Ordered 04/07/21 Ordered By: Lorenza Tavares Patient Instructions: Opioid Safety Discharge Attestations Time Spent in Discharge Care*: less than 30 min Quality Metrics Clinical Quality Measures During this hospital stay, did patient experience: None Coding Level of Care Code Acute Chg [facility] note Diagnoses Intrahepatic cholestasis of in third trimester O26.613; K83.1 Supervision of elderly multigravida O09.522 Trimester: second trimester Short interval between pregnancies affecting , antepartum O09.899 labor in third trimester O60.03
[2021-04-07 15:30] VITALS: BP 112/68; PULSE 70; RESP 17; TEMP 36.7
--- NOTE | 2021-04-07 15:30 | PC.NURSE ---
rooming in with infant
[2021-04-07 17:42] LABS: Quest SARS-CoV-2 RNA NOT DETECTED (NOT DETECTED)
== END 2021-04-07 15:30 | disposition home or self-care (01) | DRG 805 ==
PROVIDERS: Admitting Provider Obstetrics & Gynecology; PCP Family Medicine; Visit Provider Obstetrics & Gynecology
DX: O60.14X0 Preterm labor third trimester with preterm delivery third trimester, not applicable or unspecified (principal); K83.1 Obstruction of bile duct; Z37.0 Single live birth; O26.62 Liver and biliary tract disorders in childbirth; O77.0 Labor and delivery complicated by meconium in amniotic fluid; Z3A.34 34 weeks gestation of pregnancy
CPT/HCPCS: 36415; 51702; 59025; 59409; 85025; 85027; 87635; 88307; 96372; 96374; 99211; J0290; J0702; J2795; J3010

== ENCOUNTER → 2021-04-17 09:41 | Outpatient (BNVA) | payer OTHER, MEDICAID, SELFPAY | PROVIDERS: PCP Family Medicine; Visit Provider Obstetrics & Gynecology | DX: L29.9 Pruritus, unspecified (principal); R74.8 Abnormal levels of other serum enzymes | CPT/HCPCS: 80053 ==

== ENCOUNTER → 2022-05-27 16:00 | Outpatient (BNVA) | payer MEDICAID, SELFPAY | PROVIDERS: PCP Nurse Practitioner; Visit Provider Obstetrics & Gynecology | DX: Z01.419 Encounter for gynecological examination (general) (routine) without abnormal findings (principal); R10.2 Pelvic and perineal pain; G89.29 Other chronic pain | CPT/HCPCS: 87491; 87591; 87661 ==

== ENCOUNTER → 2022-06-10 09:33 | Outpatient (BNVA) | payer MEDICAID, SELFPAY | PROVIDERS: PCP Nurse Practitioner; Visit Provider Obstetrics & Gynecology | DX: R10.2 Pelvic and perineal pain (principal) | CPT/HCPCS: 76830 ==

== ENCOUNTER 2022-06-17 09:11 | Outpatient (CLI) | payer MEDICAID, SELFPAY ==
--- NOTE | 2022-06-17 09:29 | MM_ITS ---
WS: [id number] SCREENING DIGITAL TOMOSYNTHESIS MAMMOGRAM WITH CAD HISTORY: Z01.419 - Encounter for gynecological examination (genera... COMPARISON: None available. Bilateral CC and MLO with tomosynthesis views submitted. Synthetic mammography reviewed. Computer aid ed detection analyzed. Breast composition: The breasts are extremely dense, which lowers the sensitivity of mammography. No suspicious masses, microcalcifications or architectural distortion. MM/[place] [id number] IMPRESSION: BI-RADS: 1-Negative FOLLOW UP: 1 Year Follow-up
== END 2022-06-17 09:12 | disposition home or self-care (01) ==
PROVIDERS: PCP Nurse Practitioner; Visit Provider Obstetrics & Gynecology
DX: Z12.31 Encounter for screening mammogram for malignant neoplasm of breast (principal)
CPT/HCPCS: 77063; 77067

== ENCOUNTER → 2023-01-26 12:51 | Outpatient (BNVA) | payer MEDICAID, SELFPAY | PROVIDERS: PCP Nurse Practitioner; Visit Provider Emergency Medicine | DX: J02.9 Acute pharyngitis, unspecified (principal) | CPT/HCPCS: 87880 ==